=== PATIENT | male | born 1950 | race Caucasian/White ===

== ENCOUNTER 2021-10-09 18:15 | Emergency (ER) | payer MEDICARE, OTHER, SELFPAY ==
[2021-10-09 18:15] VITALS: BP 157/80; PULSE 58; RESP 20; TEMP 36.7; O2SAT 97; BMI 25.0
--- NOTE | 2021-10-09 18:18 | XR_ITS ---
PROCEDURE INFORMATION: Exam: XR Left Hand Exam date and time: 10/09/2021 6:18 PM Age: 70 years old Clinical indication: Injury or trauma; Fall; Blunt trauma (contusions or hematomas); Hand; Patient HX: PT fell, left wrist pain and swelling. TECHNIQUE: Imaging protocol: XR Left hand. Views: 3 or more views. COMPARISON: CR HANDL3 HAND-LT-3 VIEWS 07/11/2016 9:35 AM FINDINGS: Bones/joints: Moderate degenerative changes of the radiocarpal joint, manifest by joint space narrowing, subchondral sclerosis, and osteophyte formation, similar to comparison study. Degenerative changes of the ulnocarpal joint, with mild joint space narrowing and osteophyte formation, progressed from comparison study. Mild degenerative changes of the triscaphe and 1st carpometacarpal joints. Mild degenerative changes of the 1st metacarpophalangeal and 2nd through 5th interphalangeal joints. No acute fracture or dislocation. Soft tissues: Normal. IMPRESSION: No acute fracture or dislocation.
--- NOTE | 2021-10-09 18:18 | XR_ITS ---
PROCEDURE INFORMATION: Exam: XR Left Wrist Exam date and time: 10/09/2021 6:18 PM Age: 70 years old Clinical indication: Injury or trauma; Blunt trauma (contusions or hematomas); Patient HX: Left wrist pain and swelling due to fall. TECHNIQUE: Imaging protocol: XR Left wrist. Views: 3 or more views. COMPARISON: CR XR HAND LT MIN 3V 10/09/2021 6:19 PM FINDINGS: Bones/joints: Moderate degenerative changes of the radiocarpal joint, manifest by joint space narrowing and osteophyte formation, similar to prior study. Degenerative changes of the ulnocarpal joint, with joint space narrowing, slightly increased from comparison study. Soft tissues: Mild soft tissue swelling involving the dorsal and or aspects of the wrist, likely edema. IMPRESSION: 1. No acute fracture or dislocation. 2. Mild soft tissue swelling involving the dorsal and or aspects of the wrist, likely edema.
--- NOTE | 2021-10-09 18:33 | HMH.EDUTC ---
[facility] [place] Clinical Impression: Wrist sprain Qualifiers: Encounter type: initial encounter Laterality: left Qualified Code(s): S63.502A - Unspecified sprain of left wrist, initial encounter Contusion Qualifiers: Encounter type: initial encounter Contusion area: wrist Laterality: left Qualified Code(s): S60.212A - Contusion of left wrist, initial encounter Disposition: Home, Self-Care Condition on Discharge: Good Instructions: How To Perform RICE (Rest, Ice, Compress, Elevate) Additional Instructions: *RICE, Rest the extremity, Ice 15-20 minutes 3-4 times daily, Compress- wear the chapo wrap as discussed as much as possible to help reduce swelling and pain, Elevate the extremity when at rest *Chapo wrap/Splint is for support and help control swelling, use it except in the shower. Be sure that is not to tight but not to loose either *Elevate when resting *Ibuprofen as directed on package every 6-8 hours as needed for pain an inflammation. If need something more can take Tylenol in between doses of Ibuprofen to help Immediately follow up with your family doctor for new or worsening of symptoms, or no noticeable improvement over the next 3-5 days Follow up with your Family Doctor or Orthopedics if no improvement or any worsening of symptoms Return if needed Straight to ER if any life threatening symptoms Monitor for circulation and make sure that wrist splint is not too tight Referrals: Raven Waggoner [Primary Care Provider] - As needed Eduin Mathur JR, MD [Physician] - (Call for appointment) Time of Disposition: 19:35 Medical Decision Making - Garrick Inquiry Pt receiving controlled substance: No Garrick was queried for this patient: No Vital Signs: 10/09/21 18:15 10/09/21 19:42 Temperature 98.0 F 98.0 F Temperature Source Oral Pulse Rate 58 L Pulse Rate [Right Brachial] 58 L Respiratory Rate 20 20 Blood Pressure 157/80 H Blood Pressure [Right Arm] 157/80 H Blood Pressure Mean [Right Arm] 105 Blood Pressure Source [Right Arm] Automatic Cuff Blood Pressure Position [Right Arm] Sitting 02 Sat by Pulse Oximetry 97 Oxygen Delivery Method Room Air - Radiology Data #1 Image(s): Wrist Image Reviewed: Yes I have reviewed radiologist's interpretation IMPRESSION: 1. No acute fracture or dislocation. 2. Mild soft tissue swelling involving the dorsal and or aspects of the wrist, likely edema. #2 Image(s): Hand Image Reviewed: Yes I have reviewed radiologist's interpretation IMPRESSION: No acute fracture or dislocation. Medical Decision Narrative: xray discussed with ED physician and she recommended having Vrad read awaiting reading [facility] H[place] - General Stated complaint: AO [id number] left wrisyt, home accident Time Seen by Provider: 10/09/21 18:33 Mode of Arrival: Ambulatory Source of Information: Patient Limitations: No Limitations Description of Symptoms (Recalled from Triage Doc. by RN): PATIENT C/O INJURY TO LEFT WRIST/HAND AFTER FALLING OFF OF A DUMPTRUCK THIS MORNING. SWELLING NOTED TO AREA HEENT Symptoms (Recalled from RN notes): No Resp Symptoms (Recalled from RN notes): No Skin Symptoms (Recalled from RN notes): No MS Symptoms (Recalled from RN notes): Yes Functional Status (Recalled from RN notes): WNL - History of Present Illness Provider Complaint: Patient states that about 730am this morning he fell from a dump truck and stuck out his left hand to catch himself States that he immediately had pain in his hand and wrist and continued to work the rest of the day States that this evening he was still having pain and some swelling States that he is able to move his fingers but has pain when he moves hand and/or wrist - Related Data Home Medications Medication Instructions Recorded Confirmed Aspirin [Aspir 81] 81 mg PO DAILY 11/02/18 12/21/18 Atorvastatin Calcium [Atorvastatin 40 mg PO DAILY 11/02/18 12/21/18 40mg Tab] Multivit-Min/FA/Lycopen/Lutein 1 each PO MELO
[2021-10-09 19:42] VITALS: BP 157/80; PULSE 58; RESP 20; TEMP 36.7; O2SAT 97
== END 2021-10-09 19:51 | disposition home or self-care (01) ==
PROVIDERS: Emergency Provider Nurse Practitioner; PCP Nurse Practitioner Family
DX: S63.502A Unspecified sprain of left wrist, initial encounter (principal); V68.4XXA Person boarding or alighting a heavy transport vehicle injured in noncollision transport accident, initial encounter; J44.9 Chronic obstructive pulmonary disease, unspecified; I25.10 Atherosclerotic heart disease of native coronary artery without angina pectoris; K21.9 Gastro-esophageal reflux disease without esophagitis; E78.5 Hyperlipidemia, unspecified; I10 Essential (primary) hypertension
CPT/HCPCS: 29125; G0463; 73110; 73130; 99202

== ENCOUNTER → 2022-05-06 10:14 | Outpatient (CLI) | payer MEDICARE, OTHER, SELFPAY ==
[2022-05-06 10:17] LABS: Adenovirus F 40/41, stool Not Detected (NotDetected); Astrovirus Not Detected (NotDetected); Campylobacter Not Detected (NotDetected); Clostridium Difficile A/B, PCR Not Detected (NotDetected); Cryptosporidium Not Detected (NotDetected); Cyclospora Cayetanesis Not Detected (NotDetected); Entamoeba histolytica Not Detected (NotDetected); Enteroaggregative E coli Not Detected (NotDetected); Enterotoxigenic E coli Not Detected (NotDetected); Giardia lamblia Not Detected (NotDetected); Norovirus Not Detected (NotDetected); Plesimonas Shigalloides, PCR Not Detected (NotDetected); Rotavirus A Not Detected (NotDetected); Salmonella, PCR Not Detected (NotDetected); Sapovirus Not Detected (NotDetected); Shiga-like toxin E coli Not Detected (NotDetected); Shigella Enterovasive E coli Not Detected (NotDetected); Vibrio Cholerae Not Detected (NotDetected); Vibrio, PCR Not Detected (NotDetected); Yersinia Entercolitica, PCR Not Detected (NotDetected)
[2022-05-06 21:35] LABS: Enteropathogenic E coli Detected (NotDetected)
== END ==
PROVIDERS: PCP Nurse Practitioner Family; Visit Provider Nurse Practitioner Family
DX: R19.7 Diarrhea, unspecified (principal); A04.4 Other intestinal Escherichia coli infections
CPT/HCPCS: 87506

== ENCOUNTER 2025-01-26 06:52 | Day surgery (SDC) | payer MEDICARE, OTHER, SELFPAY ==
[2025-01-23 14:19] VITALS: BMI 25.0
[2025-01-26 07:25] VITALS: BP 150/73; PULSE 61; RESP 17; O2SAT 96
[2025-01-26] MEDS: LACTATED RINGERS 1000ML 1,000 ML 999 ML IV (07:30)
--- NOTE | 2025-01-26 07:36 | P.PNANES_ITS ---
[facility] Disclaimer: The information contained in this section may have been updated after the patient was seen, as this information can be updated by other users. Medical History Kidney stone COPD (chronic obstructive pulmonary disease) History of gastroesophageal reflux (GERD) Throat cancer Surgical History H/O hernia repair Family History Other Family history of cancer Family history of myocardial infarction Social History Smoking Status: Never smoker alcohol intake: current substance use type: denies use current occupational status: retired Travel in the last 8 weeks: Inside the [place] caffeine: Yes [facility] Anesthesia Checklist Patient Identification Patient Identification: Arm Band Structural Data Admitted From: Home Planned Operative Procedure/s: EGD/Colonoscopy Consent for Planned Operative Procedure(s) Verified: Yes Verified Documents: Surgical Consent and History and Physical NPO Status Verified Time NPO: 05:00 (finished prep) Additional verifications Anesthesia Reactions: No Airway Assessment Mallampati Score:: Class II C-Spine Mobility Assessed: Yes TMJ Mobility Assessed: Yes Dentition: Good Dentition Neurological Assessment Level of Consciousness: Awake, Alert and Appropriate Anesthesia Plan Anesthesia Risk discussed: Yes Anesthesia Plan: Verified ASA Class: III Anesthesia Type: MAC
--- NOTE | 2025-01-26 08:27 | EXP.HP ---
History of Present Illness *Admission Date: 01/26/25 *Reason for visit:: Intractable GERD/surveillance colonoscopy personal history of adenomatous p *History of present illness: Mr. Iraheta is a 74-year-old gentleman who is here for diagnostic upper endoscopy and surveillance/screening colonoscopy. He does have intractable GERD and takes pantoprazole twice daily. He had a colonoscopy in December 2018 and had 2 polyps (tubular adenomas x 2) removed. The examination is deemed medically necessary for endoscopy and surveillance colonoscopy. The patient has been seen, interviewed and examined prior to the procedure by both myself and the anesthesia provider. [facility] Disclaimer: The information contained in this section may have been updated after the patient was seen, as this information can be updated by other users. Medical History (Updated 01/26/25 @ 08:43 by Sergey Esteves II, MD) Kidney stone COPD (chronic obstructive pulmonary disease) History of gastroesophageal reflux (GERD) Throat cancer Surgical History H/O hernia repair Family History Other Family history of cancer Family history of myocardial infarction Social History (Updated 01/26/25 @ 07:43 by Amaury Bah CRNA) Smoking Status: Never smoker alcohol intake: current substance use type: denies use current occupational status: retired Travel in the last 8 weeks: Inside the [place] caffeine: Yes Have you lived/traveled outside US in past 30 days?: No Contact w/someone who lives/traveled outside US past 30 days?: No Exposure to someone with infectious disease in past 14 days?: No Do you have a fever (greater than 100.4 F or 38 C)?: No Have you tested positive for COVID-19: No Exposed to someone with COVID-19 in past 14 days?: No Do you have a sore throat?: No Do you have a cough?: No Do you have any weakness?: No Are you experiencing any nausea/vomitting?: No Do you have any diarrhea?: No Are you experiencing any unusual bleeding?: No Do you have any muscle aches/pain?: No Do you have any abdominal pain?: No Are you experiencing loss of taste or smell?: No Review of Systems Review of Systems Review of systems (narrative): Negative *Cardiovascular Comments: Negative *Gastrointestinal Comments: Negative *Genitourinary Comments: Negative *Musculoskeletal Comments: Negative *Neurologic Comments: Negative Meds Home Medications and Allergies Home Medications ?Medication ?Instructions ?Recorded ?Confirmed ?Type aspirin 81 mg tablet,delayed 81 mg PO DAILY thinner 11/02/18 01/23/25 History release (Aspir-) atorvastatin 40 mg tablet 40 mg PO DAILY Cholesterol 11/02/18 01/23/25 History lisinopril 5 mg tablet 5 mg PO DAILY blood pressure 11/02/18 01/23/25 History [id number] 300 mcg-K 60 1 ea PO DAILY Supplement 11/02/18 01/23/25 History mcg-lycop 600 mcg-lutein 300 mcg tablet (Centrum Silver Men) nitroglycerin 0.4 mg sublingual 0.4 mg sublingual NEEDED PRN 11/02/18 01/23/25 History tablet Chest Pain oxybutynin chloride 10 mg 10 mg PO DAILY bladder 11/02/18 01/23/25 History tablet,extended release 24 hr (Ditropan XL) pantoprazole 20 mg tablet,delayed 40 mg PO DAILY Reflux/Acid reflux 11/02/18 01/23/25 History release ranitidine HCl 150 mg capsule 150 mg PO DAILY Reflux/Acid reflux 11/02/18 01/23/25 History sucralfate 1 gram tablet 1 g PO ACHS stomach 11/02/18 01/23/25 History tamsulosin 0.4 mg capsule 0.4 mg PO HS prostate 11/02/18 01/23/25 History umeclidinium 62.5 mcg-vilanterol 1 inh inhalation DAILY Breathing 11/02/18 01/23/25 History 25 mcg/actuation powdr for problems inhalation (Anoro Ellipta) New Prescriptions to Start Prescriptions: Allergies Allergy/AdvReac Type Severity Reaction Status Date / Time No Known Allergies Allergy Verified 01/23/25 14:12 Exam Data for Last 24 hours Vital signs and Labs for Last 24 Hours: Pulse Resp BP Pulse Ox O2 Del Method 61 17 150/73 H 96 Room Air 01/26/25 07:25 01/26/25 07:25 01/26/25 07:25 01/26/25 07:25 01/26/25 07:25 I & O for Last 24 hours: Intake & Output 01/23/25 01/24/25 01/25/25 01/26/25 23:59 23:59 23:59 23:59 Weight 185 lb *Routine HEENT Exam Head: Present normocephalic Eye: Present EOMI and PERRL ENT: Present mucous membranes moist *Routine Neck Exam Neck: Present supple *Routine Respiratory Exam Respiratory: Present CTA bilaterally *Routine Cardiovascular Exam Cardiovascular: Present RRR *Routine Abdominal Exam Abdominal: Present soft and normoactive bowel sounds; Absent tenderness *Routine Rectal Exam Rectal:: deferred *Routine Genitalia Exam Genitalia:: deferred *Routine Extremities Exam Extremities: Absent cyanosis, clubbing or edema *Routine Skin Exam Skin: Present warm; Absent rash *Routine Neurological Exam Neurological: Present alert and oriented X3 Assessment and Plan *Assessment and plan (1) GERD (gastroesophageal reflux disease): Status: Acute Category: Medical Code(s): K21.9 - Gastro-esophageal reflux disease without esophagitis (2) Personal history of adenomatous and serrated colon polyps: Status: Acute Category: Medical Code(s): Z86.0101 - Personal history of adenomatous and serrated colon polyps Plan A/P: 1. GERD (intractable) for upper endoscopy and personal history of colon polyps and surveillance for colonoscopy is the preprocedural diagnosis. The patient will be anesthetized/sedated using MAC sedation. The patient has been seen and examined. Cardiac and lung assessment prior to the examination is stable. Proceed with planned EGD and colonoscopy.
[2025-01-26 08:35] VITALS: O2SAT 97
--- NOTE | 2025-01-26 08:43 | P.PCN_ITS ---
[facility] Procedure Note Date: 01/26/25 Time: 08:51 Procedure Note:: Upper Endoscopy Procedure Report: Esophagogastroduodenoscopy with cold biopsies and APC ablation Endoscopost: Sergey Esteves II, MD Referring Physician: CIARA Conde Date of Procedure: January 26, 2025 Equipment: Olympus GIF 190 standard upper endoscope Sedation: MAC sedation Indications: Mr. Iraheta is a 74-year-old gentleman with longstanding GERD which has been intractable. He takes pantoprazole twice daily and still has to supplement with Tums and [id number] antiacids. He does get the reflux mostly when he is supine. He reports no abdominal pain, bloating, gassiness, belching, nausea or early satiety. He does get some frequent clearance of the throat. He had an EGD with me in October 2018. At that time, he did have a large proximal esophageal inlet patch and small hiatal hernia. Biopsies at the GE junction did show some intestinal metaplasia. Procedure: Prior to the procedure, a history and physical exam was performed, and patient's medications and allergies were reviewed. The risks, benefits and alternatives of the sedation and procedure were discussed with the patient. All questions were answered and informed consent was obtained. The patient was brought to the procedure room. Patient identification and proposed procedure were verified by the physician and the nurse. The patient was placed in a left lateral decubitus position and the scope was passed under direct vision. Throughout the procedure, the patient's blood pressure, pulse, and oxygen saturations were monitored continuously. The upper GI endoscopy was accomplished without difficulty. The patient tolerated the procedure well. Findings: The scope was passed directly into the upper esophagus and advanced to the third portion of the duodenum. The post bulbar duodenum and duodenal bulb were normal with normal mucosa and conniventes. The scope was withdrawn through a normal duodenal bulb and pylorus into the stomach. There was some linear reactive gastropathy of the antrum. The body and fundus of the stomach were normal. Biopsies were taken from the antrum. Upon retroflexion there was a 1 to 2 cm hiatal hernia. The scope was then withdrawn into the esophagus. There was a single very short tongue (0.5 cm) of salmon-colored mucosa that would not meet criteria for Smith's and biopsies were taken at the GE junction. There was no evidence of reflux esophagitis. There were strong tertiary contractions and evidence of moderate esophageal dysmotility. There was a larger proximal 15 mm esophageal inlet patch. The inlet patch was ablated using APC ablation. The remainder of the esophageal mucosa was normal. Impression: 1. Proximal esophageal inlet patch (15 mm) status post APC ablation 2. Nonerosive GERD with moderate esophageal dysmotility and small 2 cm hiatal hernia 3. Mild linear reactive gastropathy Plan: Inlet patches are found in about 5% of persons. This is a small patch of lining that is more similar to the lining of the stomach and these are most often very close to the upper esophageal sphincter which is where his was located. Inlet patches usually do not cause symptoms but rare reports have shown that these lesions are sometimes associated with trouble swallowing and this can sometimes the related to fibrous webs and strictures in the region of the Inlet patch. This can lead to symptoms of globus (sense of fullness in the throat), chronic cough and intermittent trouble swallowing. I did ablate the Inlet patch. In a study in 2016, coagulation of the Inlet patch using APC demonstrated that more than 80% of persons treated with coagulation/APC had a significant improvement of globus sensation. 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 We will discuss additional treatment options. I will follow-up the biopsies and proceed with surveillance colonoscopy.
--- NOTE | 2025-01-26 09:10 | HMH.PROCNOTE ---
[facility] Procedure Note Date: 01/26/25 Time: 09:10 Procedure Note:: Colonoscopy Procedure Report: Colonoscopy with cold snare polypectomy Endoscopist: Sergey Esteves II, MD Referring physician: CIARA Conde Date of Procedure: January 26, 2025 Equipment: Olympus 190 variable stiffness pediatric colonoscope Sedation: MAC sedation Indication: Mr. Iraheta is a 74-year-old gentleman who is here for follow-up surveillance colonoscopy secondary to a personal history of adenomatous colon polyps. The patient has had several colonoscopies. His colonoscopy in September 2002 revealed 2 polyps (tubular adenoma x 1/hyperplastic polyp x 1) which were removed. His colonoscopy in November 2006 was normal. His colonoscopy in March 2013 was also normal with no polyps. His last colonoscopy in December 2018 revealed 2 polyps (tubular adenomas x 2) which were removed. The patient reports no abdominal pain, weight loss, change in his bowel habits or rectal bleeding. He reports no family history of colon cancer. Procedure: Prior to the procedure, a history and physical exam was performed, and patient's medications and allergies were reviewed. The risks, benefits and alternatives of the sedation and procedure were discussed with the patient. All questions were answered and informed consent was obtained. The patient was brought to the procedure room. Patient identification and proposed procedure were verified by the physician and the nurse. The patient was placed in a left lateral decubitus position and the scope was passed under direct vision. Throughout the procedure, the patient's blood pressure, pulse, and oxygen saturations were monitored continuously. The colonoscopy was accomplished without difficulty. The patient tolerated the procedure well. Findings: On digital rectal examination there was normal rectal tone. There were no external hemorrhoids. The colonoscope was introduced through the anal canal to the rectum and advanced to the cecum. The ileocecal valve and appendiceal orifice were identified. The scope was advanced a short distance into the ileum which appeared grossly normal. The scope was then withdrawn into the colon. There were 3 colon polyps (ascending x 1 (4 mm) and descending x 2 (4 and 6 mm)). These were removed via cold snare polypectomy. The remaining cecum, ascending and transverse colon and mucosa were grossly normal. There were scattered diverticuli throughout the descending and sigmoid colon (LEFT colon). The rectum itself was normal. Upon retroflexion within the rectum there were grade 1-2 internal hemorrhoids. The preparation was excellent throughout with [place] Preparation Score of 9. The cecal time was 12 minutes. Impression: 1. Diminutive colonic polyps x 3 2. Left-sided diverticulosis 3. Grade 1-2 internal hemorrhoids Plan: I will follow-up the polyp histology and recommend repeat surveillance colonoscopy again in 5 years. I would encourage continued bulking psyllium fiber supplementation on a maintenance basis.
[2025-01-26 09:16] VITALS: BP 100/52; PULSE 55; RESP 17; TEMP 36.1; O2SAT 92
[2025-01-26 09:26] VITALS: BP 120/65; PULSE 52; RESP 17; O2SAT 97
[2025-01-26 09:36] VITALS: BP 128/81; PULSE 53; RESP 17; O2SAT 97
[2025-01-26 09:46] VITALS: BP 129/82; PULSE 54; RESP 17; O2SAT 97
== END 2025-01-26 09:50 | disposition home or self-care (01) ==
PROVIDERS: PCP Nurse Practitioner Family; Visit Provider Internal Medicine Gastroenterology
PROC: 0DJ08ZZ Inspection of Upper Intestinal Tract, Via Natural or Artificial Opening Endoscopic (ICD-10-PCS; CPT 45378; principal; 2025-01-26 08:30)
DX: K63.5 Polyp of colon (principal); K57.30 Diverticulosis of large intestine without perforation or abscess without bleeding; K64.8 Other hemorrhoids; K31.9 Disease of stomach and duodenum, unspecified; K44.9 Diaphragmatic hernia without obstruction or gangrene; K22.4 Dyskinesia of esophagus; K21.9 Gastro-esophageal reflux disease without esophagitis; Z86.0101 Personal history of adenomatous and serrated colon polyps
CPT/HCPCS: 43239; 43270; 45385; C2618; J7120